=== PATIENT | female | born 1950 | race Caucasian/White ===

== ENCOUNTER 2020-09-22 20:51 | Emergency (ER) | payer OTHER ==
[2020-09-22 21:02] VITALS: BMI 26.2
[2020-09-22 22:15] LABS: BASO % 0.4 % (0-2.0); EOS % 0.4 % (0-4.5); HEMATOCRIT 42.4 % (32.4-45.2); HEMOGLOBIN 14.7 GM/dL (10.7-15.3); LYMPH % 24.8 % (8-40); MCH 30.2 pg (25.7-33.7); MCHC 34.7 g/dl (32.0-36.0); MEAN PLT VOLUME 6.9 fl (7.5-11.1); MONO % 6.8 % (3.8-10.2); NEUT % 67.6 % (42.8-82.8); PLATELET COUNT 148 K/MM3 (134-434); RBC 4.88 M/mm3 (3.60-5.2); RDW 13.7 % (11.6-15.6); WHITE BLOOD COUNT 5.8 K/mm3 (4.0-10.0)
[2020-09-22] MEDS ORDERED: BAMLANIVIMAB 700 MG in SODIUM CHLORIDE 180 ML IVPB ONE (22:38)
[2020-09-22 22:44] LABS: POTASSIUM 3.6 mmol/L (3.5-5.1)
[2020-09-22 22:46] LABS: ALBUMIN 4.1 g/dl (3.4-5.0); BLOOD UREA NITROGEN 13.2 mg/dL (7-18); CALCIUM 8.6 mg/dL (8.5-10.1)
[2020-09-22 22:49] LABS: CREATININE 0.7 mg/dL (0.55-1.3)
[2020-09-22 22:50] LABS: BILIRUBIN,TOTAL 0.6 mg/dL (0.2-1); TOT PROT 7.7 g/dl (6.4-8.2)
[2020-09-23 01:51] VITALS: BP 154/90; PULSE 70; TEMP 98.2
== END 2020-09-23 01:51 | disposition home or self-care (01) ==
LOC: JER 20:51
PROC: 3E033GC Introduction of Other Therapeutic Substance into Peripheral Vein, Percutaneous Approach (ICD-10-PCS; principal; 2020-09-22)
DX: U07.1 COVID-19 (principal)
CPT/HCPCS: 36415; 71046-TC-FY; 80053; 82728; 83615; 85025; 96365; 99284-25; C9803; M0239; Q0239; U0003

== ENCOUNTER 2020-12-01 14:58 | Emergency (ER) | payer OTHER ==
[2020-12-01 15:05] VITALS: BP 166/69; PULSE 84; TEMP 98.7; BMI 23.7
== END 2020-12-01 16:49 | disposition home or self-care (01) ==
LOC: JERFT 14:58
PROC: 2W3DX1Z Immobilization of Left Lower Arm using Splint (ICD-10-PCS; principal; 2020-12-01)
DX: S52.572A Other intraarticular fracture of lower end of left radius, initial encounter for closed fracture (principal)
CPT/HCPCS: 73110-TC-LT-FY; 99284-25

== ENCOUNTER 2020-12-10 05:31 | Day surgery (SDC) | payer OTHER, BC ==
[2020-12-07 11:16] VITALS: BMI 33.6
[2020-12-10] MEDS ORDERED: ROPIVACAINE HCL 0.5% 30ML VIAL ONE (07:24)
[2020-12-10] MEDS ORDERED: DEXAMETHASONE SOD PHOSPHATE/PF 10 MG/ML SDV ONE (07:25)
[2020-12-10] MEDS ORDERED: MIDAZOLAM HCL 2 MG/2 ML SINGLE DOSE VIAL ONE ×2 (07:26)
[2020-12-10] MEDS ORDERED: PROPOFOL 20 ML ONE ×2 (08:09→09:17)
[2020-12-10] MEDS ORDERED: ceFAZolin 2 GRAM PREMIX BAG IVPB ONE (08:20)
[2020-12-10] MEDS ORDERED: DEXAMETHASONE SOD PHOSPHATE 4 MG/1 ML VIAL ONE (08:31)
[2020-12-10] MEDS ORDERED: ceFAZolin SODIUM 1 GM VIAL ONE (08:31)
[2020-12-10] MEDS ORDERED: ONDANSETRON 4 MG/2 ML VIAL ONE (08:31)
[2020-12-10] MEDS ORDERED: oxyCODONE HCL 5 MG TABLET ONE (10:47)
[2020-12-10] MEDS ORDERED: ACETAMINOPHEN 325 MG TABLET (FP) PO PRN (10:55)
[2020-12-10] MEDS ORDERED: ONDANSETRON 4 MG/2 ML VIAL IVPUSH PRN (10:55)
[2020-12-10] MEDS ORDERED: oxyCODONE HCL 5 MG TABLET PO PRN (10:55)
[2020-12-10 15:23] VITALS: BP 166/69; PULSE 87; TEMP 97.2
== END 2020-12-10 15:40 | disposition home or self-care (01) ==
LOC: JASU-SURG 05:31
PROVIDERS: ATTEND Orthopaedic Surgery
PROC: 0PSJ04Z Reposition Left Radius with Internal Fixation Device, Open Approach (ICD-10-PCS; principal; 2020-12-10 08:00)
DX: S52.572A Other intraarticular fracture of lower end of left radius, initial encounter for closed fracture (principal); X58.XXXA Exposure to other specified factors, initial encounter; Y93.9 Activity, unspecified; Y92.9 Unspecified place or not applicable; Y99.9 Unspecified external cause status
CPT/HCPCS: 25608; C1713; 76000-TC-FY; 93005; 93010